=== PATIENT | male | born 1995 | race Caucasian/White ===

== ENCOUNTER 2017-11-25 17:19 | Emergency (ER) | payer OTHER ==
[~2017-11-25] VITALS: Ht 180.3 cm; Wt 66.0 kg
[2017-11-25 17:24] VITALS: BP 135/80; PULSE 93; RESP 16; TEMP 98.2; O2SAT 99
[2017-11-25] MEDS ORDERED: SODIUM CHLOR 0.9% 1000 ML INJ 1,000 ML IV SCH (17:37)
--- NOTE | 2017-11-25 17:43 | PD ---
HPI . Abdominal pain Chief Complaint: GI Complaint Time Seen by Provider: 17:32 Travel History International Travel<30 days: No Contact w/Intl Traveler<30days: No Traveled to known affect area: No History of Present Illness HPI Patient presents via [facility] with the chief complaint of abdominal pain associated with nausea. Onset was "15 minutes before you guys showed up." He is talking about [facility]. He states that he has waves of chills and feeling like he is being pricked all over by pins. He denies any previous similar history. He denies diarrhea. He states that he has had no ill contacts. He reports that he is here on vacation from [place], [place]. He states that he has no medical problems. His symptoms just started. The symptoms are waxing and waning. There are no known modifying factors. Symptoms are mild. PFSH Past Medical History Respiratory: Yes (asthma as a child) Social History Tobacco Use: No Allergies-Medications (Allergen,Severity, Reaction): Coded Allergies: No Known Allergies (Verified Allergy, Unknown, 11/25/17) Reported Meds & Prescriptions Reported Meds & Active Scripts Active Pepcid (Famotidine) 20 Mg Tab 20 Mg PO BID Zofran Odt (Ondansetron Odt) 4 Mg Tab 4 Mg SL Q6HR PRN Review of Systems Except as stated in HPI: all other systems reviewed are Neg General / Constitutional: Positive: Chills, No: Fever HENT: No: Headaches Cardiovascular: No: Chest Pain or Discomfort Respiratory: No: Shortness of Breath Gastrointestinal: Positive: Nausea, Abdominal Pain, No: Vomiting, Diarrhea Genitourinary: No: Urgency, Frequency, Dysuria Neurologic: Positive: Weakness, Paresthesia Physical Exam Narrative GENERAL: The patient is lying on the stretcher with his eyes closed during the entire interview. He has to young people at his bedside. SKIN: warm/dry. HEAD: Normocephalic. Atraumatic. EYES: Pupils equal and round. Extraocular movements are intact. ENT: Mucous membranes pink and moist. NECK: Supple. Full range of motion without pain.. CARDIOVASCULAR: Regular rate and rhythm. Heart sounds are normal. RESPIRATORY: No accessory muscle use. Clear to auscultation. Breath sounds equal bilaterally. GASTROINTESTINAL: Abdomen soft. Epigastric tenderness. Bowel sounds present. Nondistended. MUSCULOSKELETAL: No obvious deformities. Normal muscle tone. NEUROLOGICAL: Awake and alert. No obvious cranial nerve deficits. Motor grossly within normal limits. Normal speech. PSYCHIATRIC: Appropriate mood and affect; insight and judgment normal. Data Data Last Documented VS Vital Signs Date Time Temp Pulse Resp B/P (MAP) Pulse Ox O2 Delivery O2 Flow Rate FiO2 11/25/17 22:19 57 16 119/79 (92) 72 16 128/74 (92) 58 16 136/81 (99) 11/25/17 17:24 98.2 99 Orders Orders Basic Metabolic Panel (Bmp) (11/25/17 17:37) Comprehensive Metabolic Panel (11/25/17 17:37) Lipase (11/25/17 17:37) Urinalysis - C+S If Indicated (11/25/17 17:37) Iv Access Insert/Monitor (11/25/17 17:37) Sodium Chlor 0.9% 1000 Ml Inj (Ns 1000 M (11/25/17 17:37) Sodium Chloride 0.9% Flush (Ns Flush) (11/25/17 17:45) Diphenhydramine Inj (Benadryl Inj) (11/25/17 17:45) Prochlorperazine Inj (Compazine Inj) (11/25/17 17:45) Drug Screen, Random Urine (11/25/17 17:37) Complete Blood Count With Diff (11/25/17 19:43) Chest, Pa & Lat (11/25/17 ) Electrocardiogram (11/25/17 ) Ed Discharge Order (11/25/17 22:20) Labs Laboratory Tests Test 11/25/17 17:50 11/25/17 18:40 11/25/17 19:45 Blood Urea Nitrogen 9 MG/DL Creatinine 1.21 MG/DL Random Glucose 82 MG/DL Total Protein 7.3 GM/DL Albumin 4.1 GM/DL Calcium Level 8.9 MG/DL Alkaline Phosphatase 99 U/L Aspartate Amino Transf (AST/SGOT) 26 U/L Alanine Aminotransferase (ALT/SGPT) 34 U/L Total Bilirubin 0.6 MG/DL Sodium Level 142 MEQ/L Potassium Level 3.7 MEQ/L Chloride Level 107 MEQ/L Carbon Dioxide Level 24.8 MEQ/L Anion Gap 10 MEQ/L Estimat Glomerular Filtration Rate 74 ML/MIN Lipase 234 U/L Urine Color Straw Urine Turbidity CLEAR Urine pH 8.0 Urine Specific [place] 1.004 Urine Protein NEG mg/dL Urine Glucose (UA) NEG mg/dL Urine Ketones NEG mg/dL Urine Occult Blood NEG Urine Nitrite NEG Urine Bilirubin NEG Urine Leukocyte Esterase NEG Microscopic Urinalysis Comment CULT NOT INDICATED Urine Opiates Screen NEG Urine Barbiturates Screen NEG Urine Amphetamines Screen NEG Urine Benzodiazepines Screen NEG Urine Cocaine Screen NEG Urine Cannabinoids Screen NEG White Blood Count 11.8 TH/MM3 Red Blood Count 5.09 MIL/MM3 Hemoglobin 14.8 GM/DL Hematocrit 42.9 % Mean Corpuscular Volume 84.2 FL Mean Corpuscular Hemoglobin 29.1 PG Mean Corpuscular Hemoglobin Concent 34.6 % Red Cell Distribution Width 13.0 % Platelet Count 203 TH/MM3 Mean Platelet Volume 8.6 FL Neutrophils (%) (Auto) 84.5 % Lymphocytes (%) (Auto) 9.6 % Monocytes (%) (Auto) 5.2 % Eosinophils (%) (Auto) 0.3 % Basophils (%) (Auto) 0.4 % Neutrophils # (Auto) 9.9 TH/MM3 Lymphocytes # (Auto) 1.1 TH/MM3 Monocytes # (Auto) 0.6 TH/MM3 Eosinophils # (Auto) 0.0 TH/MM3 Basophils # (Auto) 0.0 TH/MM3 CBC Comment DIFF FINAL Differential Comment MDM Medical Decision Making Medical Screen Exam Complete: Yes Emergency Medical Condition: Yes Differential Diagnosis Differential diagnosis of abdominal pain includes but is not limited to gastritis, pancreatitis, hepatitis, gastroenteritis, constipation, urinary retention, peptic ulcer disease, diverticulitis or appendicitis Narrative Course This patient presents with a chief complaint of abdominal pain and nausea. He reports waves of chills and pinprick sensation all over his body. An abdominal pain workup is in process. In the meantime, he will be treated with a liter of IV fluid as well as IV Compazine and Benadryl. Care was turned over to Dr. Cobian at 7:00 PM pending labs and response to treatment. Diagnosis Primary Impression: Abdominal pain Qualified Codes: R10.84 - Generalized abdominal pain Additional Impression: Vomiting Qualified Codes: R11.2 - Nausea with vomiting, unspecified Scripts Famotidine (Pepcid) 20 Mg Tab 20 MG PO BID, #20 TAB 0 Refills Prov: Ryan Cobian MD 11/25/17 Ondansetron Odt (Zofran Odt) 4 Mg Tab 4 MG SL Q6HR Y for Nausea/Vomiting, #20 TAB 0 Refills Prov: Ryan Cobian MD 11/25/17 Disposition: 01 DISCHARGE HOME Condition: Stable Sangeetha Jackson MD Nov 25, 2017 17:43
[2017-11-25] MEDS ORDERED: PROCHLORPERAZINE INJ 10 MG/2 ML VIAL IV PUSH ONE (17:45)
[2017-11-25] MEDS ORDERED: SODIUM CHLORIDE 0.9% FLUSH 10 ML FLUSH IV FLUSH PRN (17:45)
[2017-11-25] MEDS ORDERED: diphenhydrAMINE HCL 50 MG/ML VIAL IV PUSH ONE (17:45)
[2017-11-25 18:49] LABS: ALT (GPT) 34 U/L (12-78)
[2017-11-25 18:51] LABS: ALBUMIN 4.1 GM/DL (3.4-5.0); AST (GOT) 26 U/L (15-37); BICARBONATE 24.8 MEQ/L (21.0-32.0); BLOOD UREA NITROGEN 9 MG/DL (7-18); CALCIUM 8.9 MG/DL (8.5-10.1); CHLORIDE 107 MEQ/L (98-107); CREATININE 1.21 MG/DL (0.60-1.30); GLOMERULAR FILTRATION RATE 74 ML/MIN (>89); GLUCOSE,RANDOM 82 MG/DL (74-106); SODIUM (NA) 142 MEQ/L (136-145)
[2017-11-25 18:52] LABS: ALKALINE PHOSPHATASE 99 U/L (45-117); TOTAL BILIRUBIN ADULT 0.6 MG/DL (0.2-1.0); TOTAL PROTEIN 7.3 GM/DL (6.4-8.2)
[2017-11-25 19:41] LABS: BILIRUBIN, URINE NEG (NEG); BLOOD, URINE NEG (NEG); GLUCOSE,URINE NEG (NEG); KETONE, URINE NEG (NEG); NITRITE,URINE NEG (NEG); URINE COLOR Straw (YELLW/STRAW); URINE LEUKOCYTE ESTERASE NEG (NEG)
[2017-11-25 20:01] LABS: AUTOMATED NEUTROPHIL # 9.9 TH/MM3 (1.8-7.7); BASOPHIL % 0.4 % (0.0-2.0); EOSINOPHIL % 0.3 % (0.0-4.0); HEMATOCRIT 42.9 % (39.0-51.0); HEMOGLOBIN 14.8 GM/DL (13.0-17.0); LYMPH % 9.6 % (9.0-44.0); LYMPHOCYTE # 1.1 TH/MM3 (1.0-4.8); MEAN CELL VOLUME 84.2 FL (80.0-100.0); MEAN CORPUSCULAR HEMOGLOBIN 29.1 PG (27.0-34.0); MEAN CORPUSCULAR HGB CONC 34.6 % (32.0-36.0); MEAN PLATELET VOLUME 8.6 FL (7.0-11.0); MONO % 5.2 % (0.0-8.0); MONOCYTE # 0.6 TH/MM3 (0-0.9); NEUT % 84.5 % (16.0-70.0); PLATELET COUNT 203 TH/MM3 (150-450); RED BLOOD COUNT 5.09 MIL/MM3 (4.50-5.90); WHITE BLOOD COUNT 11.8 TH/MM3 (4.0-11.0)
--- NOTE | 2017-11-25 21:27 | RADRPT ---
EXAM DATE: 11/25/2017 9:23 PM EDT AGE/SEX: 22 years / Male INDICATIONS: Syncopal episode today. CLINICAL DATA: This is the patient's initial encounter. Patient reports that signs and symptoms have been present for 1 day and indicates a pain score of 0/10. MEDICAL/SURGICAL HISTORY: None. None. COMPARISON: No prior exams available for comparison. FINDINGS: PA and lateral views of the chest demonstrate the lungs to be symmetrically aerated without evidence of mass, infiltrate or effusion. The cardiomediastinal contours are unremarkable. Osseous structures are intact. CONCLUSION: No acute cardiopulmonary disease Electronically signed by: Jah Seth MD 11/25/2017 9:26 PM EDT
--- NOTE | 2017-11-25 22:15 | PD ---
Physical Exam Date Seen by Provider: Nov 25, 2017 Time Seen by Provider: 22:15 Narrative Patient's EKG is sinus bradycardia at a rate of 56 chest x-ray is negative labs are within normal limits tox screen is negative patient is discharged home with Zofran prescription and Pepcid prescription he feels better with the medications he received from Dr. stock he is safe for discharge she has had episodes like this off and on for the few months and he needs to follow-up with his doctor for possible Holter monitor discharged home Data Data Last Documented VS Vital Signs Date Time Temp Pulse Resp B/P (MAP) Pulse Ox O2 Delivery O2 Flow Rate FiO2 11/25/17 22:19 57 16 119/79 (92) 72 16 128/74 (92) 58 16 136/81 (99) 11/25/17 17:24 98.2 99 Orders Orders Basic Metabolic Panel (Bmp) (11/25/17 17:37) Comprehensive Metabolic Panel (11/25/17 17:37) Lipase (11/25/17 17:37) Urinalysis - C+S If Indicated (11/25/17 17:37) Iv Access Insert/Monitor (11/25/17 17:37) Sodium Chlor 0.9% 1000 Ml Inj (Ns 1000 M (11/25/17 17:37) Sodium Chloride 0.9% Flush (Ns Flush) (11/25/17 17:45) Diphenhydramine Inj (Benadryl Inj) (11/25/17 17:45) Prochlorperazine Inj (Compazine Inj) (11/25/17 17:45) Drug Screen, Random Urine (11/25/17 17:37) Complete Blood Count With Diff (11/25/17 19:43) Chest, Pa & Lat (11/25/17 ) Electrocardiogram (11/25/17 ) Ed Discharge Order (11/25/17 22:20) Labs Laboratory Tests Test 11/25/17 17:50 11/25/17 18:40 11/25/17 19:45 Blood Urea Nitrogen 9 MG/DL Creatinine 1.21 MG/DL Random Glucose 82 MG/DL Total Protein 7.3 GM/DL Albumin 4.1 GM/DL Calcium Level 8.9 MG/DL Alkaline Phosphatase 99 U/L Aspartate Amino Transf (AST/SGOT) 26 U/L Alanine Aminotransferase (ALT/SGPT) 34 U/L Total Bilirubin 0.6 MG/DL Sodium Level 142 MEQ/L Potassium Level 3.7 MEQ/L Chloride Level 107 MEQ/L Carbon Dioxide Level 24.8 MEQ/L Anion Gap 10 MEQ/L Estimat Glomerular Filtration Rate 74 ML/MIN Lipase 234 U/L Urine Color Straw Urine Turbidity CLEAR Urine pH 8.0 Urine Specific [place] 1.004 Urine Protein NEG mg/dL Urine Glucose (UA) NEG mg/dL Urine Ketones NEG mg/dL Urine Occult Blood NEG Urine Nitrite NEG Urine Bilirubin NEG Urine Leukocyte Esterase NEG Microscopic Urinalysis Comment CULT NOT INDICATED Urine Opiates Screen NEG Urine Barbiturates Screen NEG Urine Amphetamines Screen NEG Urine Benzodiazepines Screen NEG Urine Cocaine Screen NEG Urine Cannabinoids Screen NEG White Blood Count 11.8 TH/MM3 Red Blood Count 5.09 MIL/MM3 Hemoglobin 14.8 GM/DL Hematocrit 42.9 % Mean Corpuscular Volume 84.2 FL Mean Corpuscular Hemoglobin 29.1 PG Mean Corpuscular Hemoglobin Concent 34.6 % Red Cell Distribution Width 13.0 % Platelet Count 203 TH/MM3 Mean Platelet Volume 8.6 FL Neutrophils (%) (Auto) 84.5 % Lymphocytes (%) (Auto) 9.6 % Monocytes (%) (Auto) 5.2 % Eosinophils (%) (Auto) 0.3 % Basophils (%) (Auto) 0.4 % Neutrophils # (Auto) 9.9 TH/MM3 Lymphocytes # (Auto) 1.1 TH/MM3 Monocytes # (Auto) 0.6 TH/MM3 Eosinophils # (Auto) 0.0 TH/MM3 Basophils # (Auto) 0.0 TH/MM3 CBC Comment DIFF FINAL Differential Comment [facility] Medical Record Reviewed: Yes Supervised Visit with HERIBERTO: No Diagnosis Primary Impression: Nausea Additional Impression: Near syncope Patient Instructions: General Instructions, Near Syncope (ED) Departure Forms: Tests/Procedures Additional Instruction: Follow-up with your doctor in the next few days possibly discuss wearing a Holter monitor if symptoms return takes Zofran for any nausea every 6 hours as needed --> follow-up with your primary care tomorrow Scripts Famotidine (Pepcid) 20 Mg Tab 20 MG PO BID, #20 TAB 0 Refills Prov: Ryan Cobian MD 11/25/17 Ondansetron Odt (Zofran Odt) 4 Mg Tab 4 MG SL Q6HR Y for Nausea/Vomiting, #20 TAB 0 Refills Prov: Ryan Cobian MD 11/25/17 Disposition: 01 DISCHARGE HOME Condition: Good Ryan Cobian MD Nov 25, 2017 22:15
[2017-11-25 22:19] VITALS: BP_SYST 119; BP_SYST 128; BP_SYST 136; BP_DIAS 74; BP_DIAS 79; BP_DIAS 81; RESP 16
[2017-11-25] MEDS ORDERED: ZOFR4TAB3 SL (22:19)
[2017-11-25] MEDS ORDERED: FAMO1TAB37 PO (22:19)
--- NOTE | 2017-11-26 07:08 | EKG ---
Date Performed: 11/25/2017 Time Performed: 20:18:43 PTAGE: 22 years EKG: SINUS BRADYCARDIA POSSIBLE RIGHT VENTRICULAR CONDUCTION DELAY BORDERLINE ECG NO PREVIOUS TRACING DOCTOR: Td D eLa Vega Interpretating Date/Time 11/26/2017 07:06:24
== END 2017-11-25 22:33 | disposition home or self-care (01) ==
LOC: NEPE 17:19
DX: R10.84 Generalized abdominal pain (principal); R11.2 Nausea with vomiting, unspecified; R55 Syncope and collapse; R00.1 Bradycardia, unspecified; R20.2 Paresthesia of skin; R68.83 Chills (without fever)
CPT/HCPCS: 71046; 80053; 80307; 81001; 83690; 85025; 93005; 96361; 96374; 96375; 99285; J0780; J1200; J7030